=== PATIENT | male | born 1980 | race Hispanic/Latino ===

== ENCOUNTER 2021-05-19 05:59 | Day surgery (SDC) | payer OTHER ==
[2021-05-16 09:06] LABS: Absolute Lymphocytes (CBC) 1.9 K/uL (0.7-4.9); Basophils % 0.5 % (0-1.3); Hematocrit 49.6 % (39.6-49.0); Lymphocytes % 36.8 % (15.3-44.8); RBC Red Blood Cell Count 5.58 M/uL (4.33-5.43)
--- NOTE | 2021-05-16 09:25 | RAD REPORT ---
EXAM DESCRIPTION: RAD - Chest Pa And Lat (2 Views) - 05/16/2021 9:09 am CLINICAL HISTORY: Pre op pending shoulder arthroscopy Chest pain. COMPARISON: CHEST SINGLE VIEW dated 03/20/2015; CHEST SINGLE VIEW dated 10/24/2014 FINDINGS: The lungs are clear. The heart is normal in size. No displaced fractures.
[2021-05-16 09:26] LABS: BUN Blood Urea Nitrogen 18 mg/dL (7-18); Bicarbonate 28 mmol/L (21-32); Glucose Level 99 mg/dL (74-106); Potassium 4.3 mmol/L (3.5-5.1); Sodium Level 139 mmol/L (136-145)
[2021-05-16 09:28] LABS: Protime INR 0.96
--- NOTE | 2021-05-16 11:53 | EKG ---
Test Date: 2021-05-16 Test Time: 08:45:21 Community Service Specialist: GERRY MEASUREMENT RESULTS: Intervals: Rate: 70 CO: 142 QRSD: 86 QT: 370 QTc: 399 [place]: P: 46 CO: 142 QRS: 51 T: 44 INTERPRETIVE STATEMENTS: Normal sinus rhythm Normal ECG Compared to ECG 03/20/2015 13:35:53 No significant changes Electronically Signed On 05-16-21 11:53:24 [employer]NER by Boubacar Oliver
[2021-05-19] MEDS ORDERED: dexAMETHasone 10 MG/ML VIAL ONE ×2 (06:14→07:11)
[2021-05-19] MEDS ORDERED: MIDAZOLAM HCL 2 MG/2 ML INJ ONE (06:14)
[2021-05-19] MEDS ORDERED: NS 0.9% VIAL 10 ML ONE (06:14)
[2021-05-19] MEDS ORDERED: LIDOCAINE 1% MPF 5 ML VIAL ONE (06:14)
[2021-05-19] MEDS ORDERED: FENTANYL CITR 100 MCG/2 ML ONE (06:14)
[2021-05-19] MEDS ORDERED: ROPLVACAINE HCL 40 ML ONE (06:15)
[2021-05-19] MEDS ORDERED: CEFAZOLIN/NS 1gm 1 GM/50 ML BAG ONE (06:29)
[2021-05-19] MEDS ORDERED: Ringers Lactate 1,000 ML IV ONE ×2 (06:29→09:05)
[2021-05-19] MEDS ORDERED: EPINEPHRINE/PF 1 MG/ML AMP ONE (07:00)
[2021-05-19] MEDS ORDERED: propofoL 200 MG/20 ML VIAL IV ONE (07:10)
[2021-05-19] MEDS ORDERED: ROCURONIUM 50 MG/5 ML VIAL IV ONE (07:10)
[2021-05-19] MEDS ORDERED: KETOROLAC 30 MG/ML INJ ONE (07:11)
[2021-05-19] MEDS ORDERED: LIDOCAINE 2% MPF 5 ML VIAL ONE (07:11)
[2021-05-19] MEDS ORDERED: ONDANSETRON 4 MG/2 ML VIAL ONE (07:11)
[2021-05-19] MEDS ORDERED: GLYCOPYRROLATE 0.2 MG/ML SYR ONE (09:16)
[2021-05-19] MEDS ORDERED: NEOSTIGMINE 1 MG/ML -5 ML ONE (09:16)
--- NOTE | 2021-05-19 09:35 | P.BOP ---
Preoperative diagnosis: right shoulder rotator cuff tear, impingement syndrome Postoperative diagnosis: same, right shoulder SLAP tear Primary procedure: right shoulder arthroscopic rotator cuff repair Secondary procedure: right shoulder arthroscopic SLAP debridement Other procedure(s): right shoulder arthroscopic subacromial decompression Estimated blood loss: 5 cc Specimen: none Findings: see dictation Anesthesia: General Complications: None Implants: 1- 5.5 mm Arthrex Corkscrew, 2- 4.75 mm Arthrex Swivelock Fluids & blood products: per anesthesia record Transferred to: Recovery Room Condition: Good
--- NOTE | 2021-05-19 10:09 | RAD REPORT ---
EXAM DESCRIPTION: RAD - Shoulder 1 View - 05/19/2021 9:49 am CLINICAL HISTORY: S/P ROTATOR CUFF REPAIR COMPARISON: No comparisons FINDINGS/IMPRESSION: Single view of the right shoulder demonstrating postoperative changes. No acute osseus abnormality.
[2021-05-19] MEDS ORDERED: HYDROCODONE/APAP 7.5/325 MG TAB ONE (10:24)
[2021-05-19 11:27] VITALS: BP 116/75; TEMP 97; O2SAT 99
--- NOTE | 2021-05-24 20:44 | OP ---
Date of Procedure: 05/19/2021 Surgeon: Sabino Eugene MD Preoperative Diagnoses: 1.Right shoulder rotator cuff tear. 2.Right shoulder impingement syndrome. Postoperative Diagnoses: 1.Right shoulder rotator cuff tear. 2.Right shoulder impingement syndrome. 3.Right shoulder superior labrum from anterior to posterior tear. Procedures Performed: 1.Right shoulder arthroscopic rotator cuff repair. 2.Right shoulder arthroscopic superior labrum from anterior to posterior debridement. 3.Right shoulder arthroscopic subacromial decompression. Anesthesia: General endotracheal. Fluids: Per Anesthesia record. Ebl: 5 cc. Complications: None. Implants: 1.One 5.5 mm Arthrex corkscrew. 2.Two 4.05 mm Arthrex swivel. Indication For Procedure: Misael is a 41-year-old male who presented to my clinic with signs, symptom s, and MRI findings consistent with a full-thickness rotator cuff tear. I discussed with the patient and his family at length risks and benefits associated with operative and nonoperative treatment and expressed understanding, elected to proceed with operative treatment. Description Of Procedure: After informed consent was obtained, the patient was identified in the pre operative holding area. The right upper extremity was marked. The patient was brought back to the P ACU where he underwent right upper extremity interscalene block performed by Anesthesia. He was then brought back to the operating room, transferred to the operating table in a supine fashion and place d under general endotracheal anesthesia. He was then placed in a beach chair position with extremiti es well-padded. The right upper extremity was then prepped and draped in usual sterile fashion. A t sasha-out was initiated. The correct patient and procedure were confirmed and identified. The patient did receive his preoperative prophylactic antibiotics. A stab incision was made over the posterior portal position and after 30 cc of normal saline was injected in the glenohumeral joint via the poste rior portal position to distend the capsule. The arthroscope was then brought in via the posterior p ortal position and diagnostic arthroscopy was performed. Under direct visualization, an anterior por rishi was made and a cannula was placed. Diagnostic arthroscopy demonstrated a type 1 SLAP tear with n o instability noted of the labrum. Arthroscopic shaver was then used to debride the SLAP tear to smo oth, stable border. There was no significant anterior posterior labral tears. No significant chondr omalacia was noted of the humeral head or glenoid surface. No loose bodies were found within the axi llary pouch. Subscapularis was found to be stable and intact to probe. There was some fraying over the anterior aspect of the undersurface of the supraspinatus. A stab incision was made laterally and the obturator was brought into the shoulder joint, kept it consistent with a full thickness rotator cuff tear. Arthroscopic shaver was then used to debride the undersurface of the rotator cuff tear as well as the greater tuberosity to create a bleeding bony bed. The arthroscope was then brought to t subacromial space where subacromial bursectomy was performed using an arthroscopic shaver. The ro tator cuff tear was then identified. A stab incision was made just lateral to the acromion and a 5.5 mm Arthrex double-loaded corkscrew was then placed. Sutures were then passed through the rotator cu ff tear in anterior to posterior fashion and tied using a horizontal mattress fashion. The suture li mbs were then crisscrossed and placed using 2 lateral anchors to increase surface area of the repair site. There was good overall reduction of the tear as well as placement of the hardware. Remaining suture limbs were then cut. The undersurface of the acromion was then debrided using a radiofrequenc y ablator. There was some fraying of the coracoacromial ligament consistent with impingement syndrom e. An arthroscopic bur was then used to perform the acromioplasty. Arthroscopic instruments were th en removed without complications. The wounds were then irrigated thoroughly with normal saline. Sub cutaneous tissue was approximated using a 2-0 Vicryl. Portals were approximated using a 3-0 more Mon ocryl. Sterile dressings were applied. The patient was placed in a shoulder immobilizer, awakened, and transferred to PACU in stable condition. Postoperative Plan: The patient will be nonweightbearing and will be in a shoulder immobilizer. He will follow up in 1 week for wound check. He will begin physical therapy in 3 weeks postop per jesus rotator cuff repair protocol. JOLENE/MODL Voice ID: [id number] Report ID: [id number]
== END 2021-05-19 11:05 | disposition home or self-care (01) ==
LOC: OR 05:59
PROVIDERS: ATTEND Orthopaedic Surgery Sports Medicine
PROC: 0RNJ4ZZ Release Right Shoulder Joint, Percutaneous Endoscopic Approach (ICD-10-PCS; 2021-05-19)
PROC: 0RBJ4ZZ Excision of Right Shoulder Joint, Percutaneous Endoscopic Approach (ICD-10-PCS; 2021-05-19)
PROC: 0LQ14ZZ Repair Right Shoulder Tendon, Percutaneous Endoscopic Approach (ICD-10-PCS; principal; 2021-05-19 07:30)
DX: M75.101 Unspecified rotator cuff tear or rupture of right shoulder, not specified as traumatic (principal); M75.41 Impingement syndrome of right shoulder; M75.21 Bicipital tendinitis, right shoulder; M25.511 Pain in right shoulder; Z20.822 Contact with and (suspected) exposure to COVID-19
CPT/HCPCS: 93005; 85025; 80048; 36415; 85610; 85730; 71046; 73020; 29827; 29826; 29822; U0002; J2704; J0171; J2250; J3010; J1100 ×2; J2795; J2710; J0690; J7120 ×2; J2405